=== PATIENT | male | born 1955 | race Caucasian/White ===

== ENCOUNTER 2019-08-25 09:30 | Outpatient (CLI) | payer MEDICARE, SELFPAY ==
[2019-08-25 10:06] LABS: Hemoglobin A1C 7.4 % (<5.7)
== END 2019-08-25 09:31 | disposition home or self-care (01) ==
LOC: CHSLAB 09:32
PROVIDERS: PCP Nurse Practitioner Family; Visit Provider Nurse Practitioner Family
DX: E11.9 Type 2 diabetes mellitus without complications (principal)
CPT/HCPCS: 36415; 83036

== ENCOUNTER 2019-11-26 09:29 | Outpatient (CLI) | payer MEDICARE, SELFPAY ==
[2019-11-26 09:51] LABS: Hemoglobin A1C 7.2 % (<5.7)
== END 2019-11-26 09:30 | disposition home or self-care (01) ==
PROVIDERS: PCP Nurse Practitioner Family; Visit Provider Nurse Practitioner Family
DX: E11.9 Type 2 diabetes mellitus without complications (principal)
CPT/HCPCS: 36415; 83036

== ENCOUNTER 2020-03-02 09:23 | Outpatient (CLI) | payer MEDICARE, SELFPAY ==
--- NOTE | ~2020-03-02 | XR_ITS ---
EXAMINATION:XR cervical spine 4-5V DATE: 03/02/2020 09:57 INDICATION: Cervicalgia TECHNIQUE: AP, lateral, bilateral oblique, lateral swimmers and odontoid views of the cervical spine are provided. COMPARISON: None FINDINGS: There are 2 mm of anterolisthesis of C3 on C4 and C4 on C5. The vertebral body heights are maintained. The odontoid is intact. No fracture is identified. There is mild loss of intervertebral d isc space height throughout the cervical spine Prevertebral soft tissues are normal. There is mild ne uroforaminal stenosis on the left at C4-5. There is severe facet and uncovertebral joint osteoarthrit is from C4-5 through C7-T1. IMPRESSION: 1. Moderate cervical spondylosis without acute findings. Reviewed, dictated and finalized at location A.
[2020-03-02 09:46] LABS: Hematocrit 43.2 % (37.0-46.0); Hemoglobin 14.6 g/dL (12.4-15.3); Mean Corpuscular HGB Conc 33.8 g/dL (32.0-36.0); Mean Corpuscular Hemoglobin 29.7 pg (27.0-31.0); Mean Platelet Volume 9.4 fl (8.7-11.0); Platelet Count Result 205 K/mm3 (150-420); Red Blood Count 4.91 M/mm3 (4.70-6.10); Red Cell Distribution Width 11.8 % (11.6-14.4); White Blood Count 7.3 K/mm3 (4.8-10.8)
[2020-03-02 10:03] LABS: Hemoglobin A1C 7.2 % (<5.7)
[2020-03-02 10:40] LABS: Alanine Aminotransferase 38 U/L (16-63); Albumin Level 4.7 g/dL (3.4-5.0); Alkaline Phosphatase 50 U/L (46-116); Anion Gap 11 mmol/L (8-16); Aspartate Amino Transferase 25 U/L (15-37); Bilirubin,Total 0.5 mg/dL (0.00-1.00); Blood Urea Nitrogen 21 mg/dL (7-18); Calcium 9.3 mg/dL (8.5-10.1); Carbon Dioxide 24 mmol/L (21-32); Chloride 103 mmol/L (98-108); Cholesterol 157 mg/dL (0-200); Estimated Glomerular Filt Rate 60; Glucose 172 mg/dL (70-99); HDL Direct 42 mg/dL (40-60); LDL Cholesterol Calculated 69 mg/dL (<130); Osmolality Calculated 293 mOsm/kg (285-295); Potassium 4.9 mmol/L (3.5-5.1); Sodium 138 mmol/L (136-145); Total Protein 7.3 g/dL (6.4-8.2); Triglycerides 231 mg/dL (0-150)
== END 2020-03-02 09:24 | disposition home or self-care (01) ==
LOC: CHSLAB 09:28
PROVIDERS: PCP Nurse Practitioner Family; Visit Provider Nurse Practitioner Family
DX: M54.2 Cervicalgia (principal); I10 Essential (primary) hypertension; E11.9 Type 2 diabetes mellitus without complications; E11.59 Type 2 diabetes mellitus with other circulatory complications; E11.69 Type 2 diabetes mellitus with other specified complication; E78.5 Hyperlipidemia, unspecified
CPT/HCPCS: 36415; 72050; 80053; 80061; 83036; 85027

== ENCOUNTER 2020-06-28 09:42 | Outpatient (CLI) | payer MEDICARE, SELFPAY ==
[2020-06-28 10:12] LABS: Hemoglobin A1C 6.7 % (<5.7)
[2020-06-28 10:21] LABS: Creatinine Urine 63.14 mg/dL (40-278); MALB Creatinine Ratio 40.3 mg/g (0-30); Microalbumin Urine Random 25.5 mg/L
[2020-06-28 10:51] LABS: Alanine Aminotransferase 38 U/L (16-63); Albumin Level 4.8 g/dL (3.4-5.0); Alkaline Phosphatase 47 U/L (46-116); Anion Gap 8 mmol/L (8-16); Aspartate Amino Transferase 20 U/L (15-37); Bilirubin,Total 0.6 mg/dL (0.00-1.00); Blood Urea Nitrogen 20 mg/dL (7-18); Calcium 10.5 mg/dL (8.5-10.1); Carbon Dioxide 28 mmol/L (21-32); Chloride 101 mmol/L (98-108); Estimated Glomerular Filt Rate 55; Glucose 138 mg/dL (70-99); Osmolality Calculated 288 mOsm/kg (285-295); Potassium 4.6 mmol/L (3.5-5.1); Sodium 137 mmol/L (136-145); Total Protein 7.6 g/dL (6.4-8.2)
== END 2020-06-28 09:43 | disposition home or self-care (01) ==
LOC: CHSLAB 09:45
PROVIDERS: PCP Nurse Practitioner Family; Visit Provider Nurse Practitioner Family
DX: E11.9 Type 2 diabetes mellitus without complications (principal)
CPT/HCPCS: 36415; 80053; 82043; 83036

== ENCOUNTER 2020-09-28 09:09 | Outpatient (CLI) | payer MEDICARE, SELFPAY ==
[2020-09-28 10:31] LABS: Alanine Aminotransferase 46 U/L (16-63); Albumin Level 4.5 g/dL (3.4-5.0); Alkaline Phosphatase 47 U/L (46-116); Anion Gap 9 mmol/L (8-16); Aspartate Amino Transferase 35 U/L (15-37); Bilirubin,Total 0.6 mg/dL (0.00-1.00); Blood Urea Nitrogen 28 mg/dL (7-18); Calcium 10.8 mg/dL (8.5-10.1); Carbon Dioxide 30 mmol/L (21-32); Chloride 100 mmol/L (98-108); Estimated Glomerular Filt Rate 51; Glucose 143 mg/dL (70-99); Osmolality Calculated 295 mOsm/kg (285-295); Potassium 4.8 mmol/L (3.5-5.1); Sodium 139 mmol/L (136-145); Total Protein 7.4 g/dL (6.4-8.2)
== END 2020-09-28 09:10 | disposition home or self-care (01) ==
LOC: CHSLAB 09:12
PROVIDERS: PCP Nurse Practitioner Family; Visit Provider Nurse Practitioner Family
DX: E11.9 Type 2 diabetes mellitus without complications (principal); R79.89 Other specified abnormal findings of blood chemistry
CPT/HCPCS: 36415; 80053; 83036

== ENCOUNTER 2021-04-06 09:17 | Outpatient (CLI) | payer MEDICARE, SELFPAY ==
[2021-04-06 09:30] LABS: Basophils Absolute Auto 0.09 K/mm3 (0.00-0.10); Basophils Percent Auto 1.1 % (0.0-1.0); Eosinophils Absolute Auto 0.38 K/mm3 (0.02-0.50); Eosinophils Percent Auto 4.8 % (1.0-6.0); Hematocrit 43.3 % (37.0-46.0); Hemoglobin 14.7 g/dL (12.4-15.3); Immature Granulocyte Absolute 0.05 K/mm3 (0.00-0.00); Immature Granulocyte Percent A 0.6 % (0.0-0.0); Lymphocytes Percent Auto 25.5 % (18.0-42.0); Mean Corpuscular HGB Conc 33.9 g/dL (32.0-36.0); Mean Corpuscular Hemoglobin 29.7 pg (27.0-31.0); Mean Corpuscular Volume 87.5 fL (78.0-102.0); Mean Platelet Volume 8.7 fl (8.7-11.0); Monocytes Absolute Auto 0.74 K/mm3 (0.10-0.90); Monocytes Percent Auto 9.4 % (2.0-11.0); Neutrophils Absolute Auto 4.6 K/mm3 (1.7-7.2); Neutrophils Percent Auto 58.6 % (50.0-70.0); Platelet Count Result 216 K/mm3 (150-420); Red Blood Count 4.95 M/mm3 (4.70-6.10); White Blood Count 7.8 K/mm3 (4.8-10.8)
[2021-04-06 09:55] LABS: Hemoglobin A1C 7.1 % (<5.7)
[2021-04-06 10:30] LABS: Alanine Aminotransferase 45 U/L (16-63); Albumin Level 4.3 g/dL (3.4-5.0); Alkaline Phosphatase 45 U/L (46-116); Anion Gap 11 mmol/L (8-16); Aspartate Amino Transferase 19 U/L (15-37); Bilirubin,Total 0.6 mg/dL (0.00-1.00); Blood Urea Nitrogen 29 mg/dL (7-18); Calcium 10.7 mg/dL (8.5-10.1); Carbon Dioxide 27 mmol/L (21-32); Chloride 102 mmol/L (98-108); Cholesterol 148 mg/dL (0-200); Estimated Glomerular Filt Rate > 60; Glucose 161 mg/dL (70-99); HDL Direct 40 mg/dL (40-60); LDL Cholesterol Calculated 47 mg/dL (<130); Osmolality Calculated 298 mOsm/kg (285-295); Potassium 4.7 mmol/L (3.5-5.1); Prostate Specific Antigen 11.6 ng/mL (< OR = 4.0); Sodium 140 mmol/L (136-145); Total Protein 6.9 g/dL (6.4-8.2); Triglycerides 303 mg/dL (0-150)
== END 2021-04-06 09:18 | disposition home or self-care (01) ==
LOC: CHSLAB 09:21
PROVIDERS: PCP Nurse Practitioner Family; Visit Provider Nurse Practitioner Family
DX: E11.9 Type 2 diabetes mellitus without complications (principal); I10 Essential (primary) hypertension; E78.5 Hyperlipidemia, unspecified; R35.0 Frequency of micturition
CPT/HCPCS: 36415; 80053; 80061; 83036; 84153; 85025

== ENCOUNTER 2022-03-15 14:36 | Outpatient (CLI) | payer MEDICARE, SELFPAY ==
--- NOTE | ~2022-03-15 | XR_ITS ---
EXAM: XR lumbar spine 2-3V DATE: 03/15/2022 15:40 HISTORY: M54.50 - Low back pain, unspecified . COMPARISON: None available. FINDINGS: Lumbar scoliosis. 5 nonrib-bearing lumbar-type vertebral bodies. Pedicles intact. 2 mm ante rolisthesis of L4 on L5. Vertebral body heights preserved. Mild concave superior and inferior endplat e deformities as can be seen with osteoporosis. Prominent marginal osteophyte formation at all lumbar levels. Disc space narrowing, mild at L3-4 and L4-5, moderate at L5-S1 where there is vacuum disc ph enomenon. Lower lumbar facet hypertrophy and sclerosis. No fracture or dislocation. Scattered vascula r calcifications. IMPRESSION: Grade 1 anterolisthesis at L4-5. Multilevel degenerative disc disease, severe at L5-S1. L ower lumbar facet arthropathy. Reviewed, dictated and finalized at location K. IMPRESSION: Grade 1 anterolisthesis at L4-5. Multilevel degenerative disc disea se, severe at L5-S1. Lower lumbar facet arthropathy.
[2022-03-15 15:30] LABS: Prostate Specific Antigen 5.6 ng/mL (< OR = 4.0)
== END 2022-03-15 14:37 | disposition home or self-care (01) ==
LOC: CHSLAB 14:39
PROVIDERS: PCP Family Medicine; Visit Provider Family Medicine
DX: M54.50 Low back pain, unspecified (principal); R35.1 Nocturia; N40.0 Benign prostatic hyperplasia without lower urinary tract symptoms
CPT/HCPCS: 36415; 72100; 84153; G0103

== ENCOUNTER 2022-03-20 08:51 | Outpatient (RCR) | payer MEDICARE, SELFPAY ==
--- NOTE | 2022-03-20 10:47 | PTOPEVAL1 ---
Assessment and note entered by Brendan Arshad Evaluation Information Assessment Status Evaluation Diagnosis low back pain Onset 03/15/22 Subjective Information Pt. reports that he has had low back pain on/off for long period of time. He reports that his pain has worsened over the past 2 months. He states that pain is located across the lower back and going down the right leg. He reports that pain worsens with long periods of standing and long periods of sitting. He states that he can stand for long periods but will have to lean on something to reduce pain. He enjoys going to the gym, but pain recently limits his ability to go to the gym. He reports that his goal is to reduce is pain. Reported Pain Level Pain Score 5: Self Report Assessment PT Clinical Summary Pt. is a 67 year old male that enters the clinic with low back pain secondary to arthritic change. He demonstrates impaired postural awareness, impaired strength, impaired flexibility and pain. Continued treatment is indicated in order to improve these areas to allow the pt. to be able to complete all IADL's with improved comfort and efficiency. Plan of Care Interventions Electrical Stimulation,Hot Pack/Cold Pack,Manual Therapy,Mechanical Traction,Neuro Re-education, Therapeutic Activities,Therapeutic Exercise PT Services Indicated Yes Treatment Frequency and 3x/week x 12 visits Duration These treatments will address the objective and functional deficits as defined above. The patient will be advanced safely and appropriately in order for the patient to progress towards his/her prior level of function. Additional exercises will be introduced and as well as a comprehensive home exercise program upon discharge, if needed, ?to ensure carryover of functional gains achieved in the clinic. This treatment plan has been reviewed and agreement upon by the patient.
--- NOTE | 2022-04-10 08:38 | PTOPEVAL1 ---
Assessment and note entered by Brendan Arshad Evaluation Information Assessment Status Progress Diagnosis low back pain Onset 03/15/22 Subjective Information Pt. reports that his low back continues to improve . He notes that pain is less intense. He states that he is returned to regularly walking without much pain. He states that pain is still most notable in the morning and still notes some early childhood associate stiffness. He reports that he would like to continue to improve strength and mobility of his back. Reported Pain Level Pain Score 2: Self Report Assessment PT Clinical Summary Pt. demonstrates improvements in l.e. strength and core strength. He still presents with mild pain, but subjective reports are decreased compared to initial evaluation. We will continue to focus on core strength and stability and advance exercise as indicated. Plan of Care Interventions Manual Therapy,Therapeutic Activities,Therapeutic Exercise PT Services Indicated Yes Treatment Frequency and continue for 2 additional sessions advancing core Duration strengthening to allow for independence with comprehensive HEP. These treatments will address the objective and functional deficits as defined above. The patient will be advanced safely and appropriately in order for the patient to progress towards his/her prior level of function. Additional exercises will be introduced and as well as a comprehensive home exercise program upon discharge, if needed, ?to ensure carryover of functional gains achieved in the clinic. This treatment plan has been reviewed and agreement upon by the patient.
== END 2022-04-14 13:48 | disposition home or self-care (01) ==
LOC: CHSPT 08:51
PROVIDERS: PCP Family Medicine; Visit Provider Family Medicine
DX: M54.50 Low back pain, unspecified (principal)
CPT/HCPCS: 97014; 97110; 97161; G0283

== ENCOUNTER 2022-04-06 09:12 | Outpatient (CLI) | payer MEDICARE, SELFPAY ==
[2022-04-06 09:24] LABS: Hemoglobin 14.5 g/dL (12.4-15.3); Mean Corpuscular HGB Conc 33.7 g/dL (32.0-36.0); Mean Corpuscular Hemoglobin 30.5 pg (27.0-31.0); Mean Corpuscular Volume 90.3 fL (78.0-102.0); Mean Platelet Volume 9.2 fl (8.7-11.0); Platelet Count Result 214 K/mm3 (150-420); Red Blood Count 4.76 M/mm3 (4.70-6.10); Red Cell Distribution Width 12.1 % (11.6-14.4); White Blood Count 7.3 K/mm3 (4.8-10.8)
[2022-04-06 09:33] LABS: Hemoglobin A1C 7.8 % (<5.7)
[2022-04-06 09:54] LABS: Alanine Aminotransferase 42 U/L (16-63); Albumin Level 4.2 g/dL (3.4-5.0); Alkaline Phosphatase 57 U/L (46-116); Anion Gap 6 mmol/L (8-16); Aspartate Amino Transferase 17 U/L (15-37); Bilirubin,Total 0.5 mg/dL (0.00-1.00); Blood Urea Nitrogen 30 mg/dL (7-18); Calcium 9.8 mg/dL (8.5-10.1); Carbon Dioxide 30 mmol/L (21-32); Chloride 102 mmol/L (98-108); Cholesterol 179 mg/dL (0-200); Estimated Glomerular Filt Rate 55; Glucose 234 mg/dL (70-99); HDL Direct 42 mg/dL (40-60); Osmolality Calculated 300 mOsm/kg (285-295); Potassium 4.9 mmol/L (3.5-5.1); Sodium 138 mmol/L (136-145); Total Protein 7.1 g/dL (6.4-8.2)
[2022-04-06 09:55] LABS: LDL Cholesterol Calculated 39 mg/dL (<130); Triglycerides 490 mg/dL (0-150)
[2022-04-06 10:13] LABS: LDL Cholesterol Direct 64 mg/dL (0-130)
== END 2022-04-06 09:13 | disposition home or self-care (01) ==
LOC: CHSLAB 09:14
PROVIDERS: Nurse Practitioner Family; PCP Family Medicine; Visit Provider Family Medicine
DX: E78.5 Hyperlipidemia, unspecified (principal); E11.69 Type 2 diabetes mellitus with other specified complication; I10 Essential (primary) hypertension
CPT/HCPCS: 36415; 80053; 80061; 83036; 83721; 85027

== ENCOUNTER 2023-02-17 07:17 | Emergency (ER) | payer MEDICARE, SELFPAY ==
[2023-02-17 07:18] VITALS: BP 132/79; PULSE 110; RESP 19; TEMP 37.1; O2SAT 99
[2023-02-17 07:24] LABS: Glucose Point of Care 179 mg/dl (65-105)
--- NOTE | 2023-02-17 07:32 | ED.WOUNDLAC ---
HPI - Wound/Laceration General Chief Complaint: Extremity Injury, Lower Stated Complaint: foot swollen Time Seen by Provider: 02/17/23 07:31 Source: patient Mode of arrival: ambulatory Limitations: no limitations History of Present Illness HPI narrative: this is a 68-year-old gentleman with a history of diabetes that presents with a callused left foot on the on the sole of his left foot and in between his large toe and 2nd toe area of inflammation with redness extends up to his mid foot area that is warm and tender to touch and painful. Patient has no fever chills no known injury has good range of motion with no drainage. Onset (ago): day(s) Location: other Extremity Location: Left: foot ( area of erythema) Related Data Allergies Allergy/AdvReac Type Severity Reaction Status Date / Time No Known Allergies Allergy Verified 02/17/23 07:37 Review of Systems Review of Systems: All systems reviewed & are unremarkable except as noted in HPI and below PMFSH Past Medical History Medical History (Updated 02/17/23 @ 07:37 by Brendan Alfaro MD) Hyperlipidemia associated with type 2 diabetes mellitus Hypertension associated with diabetes Obesity Type 2 diabetes mellitus, without long-term current use of insulin Family History Family History Mother Family history of type 2 diabetes mellitus Hypertension Father Hypertension Social History Social History Smoking status: Never smoker Alcohol intake: never Substance use: never Substance use type: does not use Living arrangements: alone Occupation/Education: retired Gender identity (if verbalized by the patient): Male Exam Const: General: healthy appearing Nutritional Appearance: well nourished Orientation/consciousness: patient oriented x3 Limitations: no limitations Chest: Chest palpation & inspection: normal inspection of the chest Resp: Effort & Inspection: normal respiratory effort Auscultation: clear to auscultation bilaterally Cardio: Rate: regular rate Rhythm: regular rhythm GI: GI Palp: Yes Soft to palpation Auscultation: normal bowel sounds Skin: Wounds: wounds noted Other: Patient with an area of erythema between is large and 1st toe on the left extending to his mid foot redness warmth and tenderness to touch. Neuro: General: patient oriented x3 Extrem: General: no pedal edema Psych: Mental Status: mental status grossly normal Affect: normal affect Course Course Emergency Course: Patient has area erythema on his left foot consistent with cellulitis, no known gouty history, will administer 30mg IM Toradol and a g of ceftriaxone IM. Vital Signs Vital signs: Vital Signs Temperature 37.1 C 02/17/23 07:18 Pulse Rate 110 H 02/17/23 07:18 Respiratory Rate 19 02/17/23 07:18 Blood Pressure 132/79 02/17/23 07:18 Pulse Oximetry 99 02/17/23 07:18 Oxygen Delivery Room Air 02/17/23 07:18 Temperature 37.1 C 02/17/23 07:18 Pulse Rate 110 H 02/17/23 07:18 Respiratory Rate 19 02/17/23 07:18 Blood Pressure 132/79 02/17/23 07:18 Pulse Oximetry 99 02/17/23 07:18 Oxygen Delivery Room Air 02/17/23 07:18 MDM - Wound/Laceration Lab Data Labs: Lab Results 02/17/23 Range/Units 07:21 POC Capillary Glucose 179 H (65-105) mg/dl Critical Care Time Critical Care Time Critical Care Time: No Discharge Plan Discharge Clinical Impression: Cellulitis and abscess of foot Patient Disposition: Home, Self-Care Condition: Stable Instructions: Antibiotic Form, Cellulitis (ED) Additional Instructions: advised to take medicine as prescribed and follow-up with primary within 1 week. Prescriptions: New amoxicillin-pot clavulanate [Augmentin] 500-125 mg tablet 1 tablet PO TID Qty: 30 0RF tramadol 50 mg tablet 50 mg PO Q6H PRN (Reason: p
[2023-02-17] MEDS: KETOROLAC 30 MG/ML VIAL (*BKC) IM (07:47)
[2023-02-17] MEDS: cefTRIAXone 1 GM, LIDOCAINE HCL 1% LOCAL INJ 2.1 ML IM (07:48)
[2023-02-17 07:50] VITALS: BP 124/78; PULSE 81; RESP 19; O2SAT 98
== END 2023-02-17 08:13 | disposition home or self-care (01) ==
LOC: CHSED 07:54
PROVIDERS: Emergency Provider Emergency Medicine; PCP Family Medicine
DX: L03.116 Cellulitis of left lower limb (principal); I10 Essential (primary) hypertension; E78.5 Hyperlipidemia, unspecified; E11.9 Type 2 diabetes mellitus without complications; Z79.82 Long term (current) use of aspirin; Z79.84 Long term (current) use of oral hypoglycemic drugs
CPT/HCPCS: 82948; 96372; 99284; J0696; J1885

== ENCOUNTER 2023-02-22 10:26 | Outpatient (CLI) | payer MEDICARE, SELFPAY ==
--- NOTE | ~2023-02-22 | XR_ITS ---
EXAMINATION: XR foot LT min 3V DATE: 02/22/2023 11:02 INDICATION: Left foot pain TECHNIQUE: Dorsoplantar, lateral, and 2 oblique views of the left foot were obtained. COMPARISON: None. FINDINGS: Bone alignment is normal. There is no acute fracture. There is mild osteoarthritis of multi ple interphalangeal joints, at multiple tarsometatarsal joints, and in the midfoot. There is a planta r calcaneal enthesophyte. There is marked soft tissue swelling of the first toe near the metatarsopha langeal joint. The adjacent osseous structures appear unremarkable. IMPRESSION: 1. Marked soft tissue swelling of the first toe near the first metatarsophalangeal joint without acut e osseous abnormality identified. Reviewed, dictated and finalized at location A. IMPRESSION: 1. Marked soft tissue swelling of the first toe near the first metatarsophalang eal joint without acute osseous abnormality identified.
[2023-02-22 10:43] LABS: Basophils Percent Auto 0.8 % (0.0-1.0); Eosinophils Percent Auto 5.3 % (1.0-6.0); Hemoglobin 11.9 g/dL (12.4-15.3); Immature Granulocyte Absolute 0.18 K/mm3 (0.00-0.00); Immature Granulocyte Percent A 1.6 % (0.0-0.0); Lymphocytes Absolute Auto 1.93 K/mm3 (1.10-4.50); Lymphocytes Percent Auto 17.5 % (18.0-42.0); Mean Corpuscular Hemoglobin 30.2 pg (27.0-31.0); Mean Corpuscular Volume 88.8 fL (78.0-102.0); Mean Platelet Volume 8.7 fl (8.7-11.0); Monocytes Absolute Auto 0.84 K/mm3 (0.10-0.90); Monocytes Percent Auto 7.6 % (2.0-11.0); Neutrophils Absolute Auto 7.4 K/mm3 (1.7-7.2); Neutrophils Percent Auto 67.2 % (50.0-70.0); Platelet Count Result 300 K/mm3 (150-420); Red Blood Count 3.94 M/mm3 (4.70-6.10); Red Cell Distribution Width 12.2 % (11.6-14.4)
[2023-02-22 10:44] LABS: Basophils Absolute Auto 0.09 K/mm3 (0.00-0.10); Eosinophils Absolute Auto 0.58 K/mm3 (0.02-0.50)
[2023-02-22 11:25] LABS: Alanine Aminotransferase 66 U/L (16-63); Albumin Level 3.5 g/dL (3.4-5.0); Alkaline Phosphatase 54 U/L (46-116); Anion Gap 9 mmol/L (8-16); Aspartate Amino Transferase 21 U/L (15-37); Bilirubin,Total 0.5 mg/dL (0.00-1.00); Blood Urea Nitrogen 20 mg/dL (7-18); CRP 3.1 mg/dL (0.0-0.9); Calcium 9.9 mg/dL (8.5-10.1); Carbon Dioxide 27 mmol/L (21-32); Chloride 105 mmol/L (98-108); Estimated Glomerular Filt Rate > 60; Glucose 156 mg/dL (70-99); Osmolality Calculated 297 mOsm/kg (285-295); Potassium 4.3 mmol/L (3.5-5.1); Sodium 141 mmol/L (136-145); Total Protein 6.8 g/dL (6.4-8.2)
[2023-02-22 11:51] LABS: Erythrocyte Sedimentation Rate 49 mm/hr (0-20)
== END 2023-02-22 10:27 | disposition home or self-care (01) ==
LOC: CHSIMG 10:29
PROVIDERS: PCP Family Medicine; Visit Provider Family Medicine
DX: L03.116 Cellulitis of left lower limb (principal); M79.672 Pain in left foot; M79.89 Other specified soft tissue disorders
CPT/HCPCS: 36415; 73630; 80053; 85025; 85652; 86140

== ENCOUNTER 2024-05-05 10:22 | Outpatient (CLI) | payer MEDICARE, SELFPAY ==
[2024-05-05 11:00] LABS: Basophils Absolute Auto 0.07 K/mm3 (0.00-0.10); Basophils Percent Auto 0.8 % (0.0-1.0); Eosinophils Absolute Auto 0.58 K/mm3 (0.02-0.50); Eosinophils Percent Auto 6.5 % (1.0-6.0); Hematocrit 43.4 % (37.0-46.0); Hemoglobin 15.1 g/dL (12.4-15.3); Immature Granulocyte Absolute 0.02 K/mm3 (0.00-0.00); Immature Granulocyte Percent A 0.2 % (0.0-0.0); Lymphocytes Absolute Auto 2.17 K/mm3 (1.10-4.50); Lymphocytes Percent Auto 24.1 % (18.0-42.0); Mean Corpuscular HGB Conc 34.8 g/dL (32-36); Mean Corpuscular Hemoglobin 30.4 pg (27.0-31.0); Mean Corpuscular Volume 87.5 fL (78.0-102.0); Mean Platelet Volume 9.7 fl (8.7-11.0); Monocytes Absolute Auto 0.69 K/mm3 (0.10-0.90); Monocytes Percent Auto 7.7 % (2.0-11.0); Neutrophils Absolute Auto 5.46 K/mm3 (1.70-7.20); Neutrophils Percent Auto 60.7 % (50.0-70.0); Platelet Count Result 239 K/mm3 (150-420); Red Blood Count 4.96 M/mm3 (4.70-6.10); Red Cell Distribution Width 11.9 % (11.6-14.4)
[2024-05-05 11:02] LABS: Creatinine Urine 56.73 mg/dL (40-278); Hemoglobin A1C 6.9 % (<5.7); MALB Creatinine Ratio 37.8 mg/g (0-30); Microalbumin Urine Random 21.5 mg/L
[2024-05-05 11:47] LABS: Alanine Aminotransferase 38 U/L (16-63); Albumin Level 4.3 g/dL (3.4-5.0); Alkaline Phosphatase 59 U/L (46-116); Anion Gap 11 mmol/L (4-12); Aspartate Amino Transferase 22 U/L (15-37); Bilirubin,Total 0.6 mg/dL (0.00-1.00); Blood Urea Nitrogen 19 mg/dL (7-18); Calcium 10.8 mg/dL (8.5-10.1); Carbon Dioxide 27 mmol/L (21-32); Chloride 101 mmol/L (98-108); Cholesterol 164 mg/dL (0-200); Estimated Glomerular Filt Rate > 60; Glucose 134 mg/dL (70-99); HDL Direct 54 mg/dL (40-60); LDL Cholesterol Calculated 61 mg/dL (<130); Osmolality Calculated 292 mOsm/kg (285-295); Potassium 4.8 mmol/L (3.5-5.1); Sodium 139 mmol/L (136-145); Total Protein 7.4 g/dL (6.4-8.2); Triglycerides 247 mg/dL (0-150)
[2024-05-05 11:53] LABS: Thyroid Stimulating Hormone Reflex 2.24 u/IU/mL (0.36-3.74)
== END 2024-05-05 10:23 | disposition home or self-care (01) ==
LOC: CHSLAB 10:27
PROVIDERS: PCP Nurse Practitioner Family; Visit Provider Nurse Practitioner Family
DX: E11.69 Type 2 diabetes mellitus with other specified complication (principal); E78.5 Hyperlipidemia, unspecified; E66.9 Obesity, unspecified
CPT/HCPCS: 36415; 80053; 80061; 82043; 83036; 84443; 85025

== ENCOUNTER 2024-12-03 07:13 | Outpatient (CLI) | payer MEDICARE, SELFPAY ==
[2024-12-03 07:33] LABS: Basophils Absolute Auto 0.09 K/mm3 (0.00-0.10); Basophils Percent Auto 1.3 % (0.0-1.0); Eosinophils Absolute Auto 0.57 K/mm3 (0.02-0.50); Eosinophils Percent Auto 8.3 % (1.0-6.0); Hematocrit 41.3 % (37.0-46.0); Immature Granulocyte Absolute 0.02 K/mm3 (0.00-0.00); Immature Granulocyte Percent A 0.3 % (0.0-0.0); Lymphocytes Absolute Auto 2.05 K/mm3 (1.10-4.50); Lymphocytes Percent Auto 29.8 % (18.0-42.0); Mean Corpuscular HGB Conc 31.5 g/dL (32-36); Mean Platelet Volume 10.1 fl (8.7-11.0); Monocytes Absolute Auto 0.58 K/mm3 (0.10-0.90); Monocytes Percent Auto 8.4 % (2.0-11.0); Neutrophils Absolute Auto 3.57 K/mm3 (1.70-7.20); Neutrophils Percent Auto 51.9 % (50.0-70.0); Platelet Count Result 224 K/mm3 (150-420); Red Blood Count 4.49 M/mm3 (4.70-6.10); Red Cell Distribution Width 12.3 % (11.6-14.4); White Blood Count 6.9 K/mm3 (4.8-10.8)
[2024-12-03 09:00] LABS: Alanine Aminotransferase 24 U/L (6-50); Albumin Level 4.5 g/dL (3.5-5.1); Alkaline Phosphatase 61 U/L (38-126); Anion Gap 8 mmol/L (4-12); Aspartate Amino Transferase 23 U/L (17-59); Bilirubin,Total 0.6 mg/dL (0.2-1.3); Blood Urea Nitrogen 26 mg/dL (9-20); Calcium 10.5 mg/dL (8.4-10.2); Carbon Dioxide 24 mmol/L (22-30); Chloride 105 mmol/L (98-107); Cholesterol 142 mg/dL (0-200); Estimated Glomerular Filt Rate > 60; Glucose 157 mg/dL (65-110); HDL Direct 47 mg/dL; LDL Cholesterol Calculated 55 mg/dL (<130); Osmolality Calculated 291 mOsm/kg (285-295); Potassium 4.7 mmol/L (3.4-5.0); Sodium 137 mmol/L (137-145); Total Protein 6.8 g/dL (6.3-8.2); Triglycerides 202 mg/dL (<150)
[2024-12-03 09:01] LABS: Creatinine Urine 81.6 mg/dL
[2024-12-03 09:05] LABS: MALB Creatinine Ratio 32.6 mg/g (0-30); Microalbumin Urine Random 26.6 mg/L (0-16.7)
== END 2024-12-03 07:14 | disposition home or self-care (01) ==
LOC: CHSLAB 07:14
PROVIDERS: PCP Nurse Practitioner Family; Visit Provider Nurse Practitioner Family
DX: R80.9 Proteinuria, unspecified (principal); E78.5 Hyperlipidemia, unspecified; E11.69 Type 2 diabetes mellitus with other specified complication; E11.9 Type 2 diabetes mellitus without complications
CPT/HCPCS: 36415; 80053; 80061; 82043; 83036; 84443; 85025

== ENCOUNTER 2025-06-09 07:13 | Outpatient (CLI) | payer MEDICARE, SELFPAY ==
[2025-06-09 07:44] LABS: Hemoglobin A1C 7.0 % (<5.7)
[2025-06-09 07:50] LABS: Cholesterol 136 mg/dL (0-200); HDL Direct 56 mg/dL; Triglycerides 140 mg/dL (<150)
[2025-06-09 07:56] LABS: MALB Creatinine Ratio 30.1 mg/g (0-30)
== END 2025-06-09 07:14 | disposition home or self-care (01) ==
LOC: CHSLAB 07:14
PROVIDERS: PCP Nurse Practitioner Family; Visit Provider Nurse Practitioner Family
DX: R80.9 Proteinuria, unspecified (principal); E11.9 Type 2 diabetes mellitus without complications; E78.1 Pure hyperglyceridemia
CPT/HCPCS: 36415; 80061; 82043; 83036